=== PATIENT | male | born 1990 | race Caucasian/White ===

== ENCOUNTER → 2020-11-07 | Outpatient (CLI) | payer OTHER | END | disposition home or self-care (01) | LOC: RAD 10:26 | PROVIDERS: ATTEND Orthopaedic Surgery | DX: S42.295D Other nondisplaced fracture of upper end of left humerus, subsequent encounter for fracture with routine healing (principal); X58.XXXD Exposure to other specified factors, subsequent encounter ==

== ENCOUNTER 2020-11-10 08:00 | Outpatient (CLI) | payer OTHER ==
[2020-11-10] MEDS ORDERED: OXYC5CAP2 PO (10:48)
== END 2020-11-10 23:59 | disposition home or self-care (01) ==
LOC: STAR 08:00
PROVIDERS: ATTEND Orthopaedic Surgery
DX: Z20.822 Contact with and (suspected) exposure to COVID-19 (principal)
CPT/HCPCS: U0003